=== PATIENT | male | born 1965 | race Caucasian/White ===

== ENCOUNTER → 2017-11-11 | Outpatient (CLI) | payer BC ==
[~2017-11-11] MED LIST: CENTRUM1 TAB PO; CIPRO 500MG TA500 MG PO; FLOMAX 0.40.4 MG/CAP PO; FLOMAX0.4 MG PO; MULTIPLE VITAMI1 CAP PO; PERCOCET 325 MG1 TA2 PO; PRILOTC PO; VITAMIN B1225 MCG SL; VITAMIN B12250 MCG PO; ZITHROMAX Z PA250 MG PO
== END ==
LOC: COL.RAD 09:15
DX: N28.89 Other specified disorders of kidney and ureter (principal); Z87.442 Personal history of urinary calculi
CPT/HCPCS: Q9967